=== PATIENT | male | born 1995 | race Caucasian/White ===

== ENCOUNTER 2025-01-30 18:30 | Emergency (ER) | payer BC, SELFPAY ==
--- OUTSIDE RECORDS SUMMARY | 2025-01-30 18:32 | XMS_ITS | Clinical Summary ---
Author Organization [place] Address [facility] [place] [address] Care Team Providers Care Coping Machine Assembler Name Role Phone Carlos Mcdaniel MD Primary Care Provider [phone] Allergies Active Allergy Reactions Criticality Noted Date Comments Amoxicillin 09/06/2003 SOB/wheezing/coughing Medications NO ACTIVE MEDICATIONS . 0 0 07/31/2003 Active Active Problems Problem Noted Date Diagnosed Date Extrinsic asthma 12/07/2003 Overview (06/20/2015): Problem list name updated by automated process. Provider to review Immunizations Immunization Administration Dates Next Due DTAP (<7y) 03/11/2001 HIB (PRP-T) 1995 HepB 04/27/2002,04/28/2001,03/11/2001 Historical DTP/aP 07/31/1996,05/05/1996,11/17/18 96,1995 MMR (MMRII) 04/28/2001,03/08/1997 Meningococcal ACWY (Menactra ) 07/19/2007 OPV, trivalent, live 07/31/1996,1995,08/25 Pneumococcal (PCV 7) 04/28/2001 Poliovirus, inactivated (IPV) 03/11/2001 TDAP Vaccine (Adacel) 07/19/2007 Varicella (Varivax) 07/19/2007,07/31/2003 Family History Medical History Relation Comments Diabetes Maternal Grandmother Type II Relation Status Comments Maternal Grandmother Social History Tobacco Use Types Packs/Day Years Used Date Smoking Tobacco: Never Alcohol Use Standard Drinks/Week Comments No 0 (1 standard drink = 0.6 oz pur e alcohol) Sex and Gender Information Value Date Recorded Sex Assigned at Not on file Legal 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 Gender Identity Not on file Sexual Orientation Not on file Last Filed Vital Signs Vital Sign Reading Time Taken Comments Blood Pressure 107/58 11/05/2018 12:12 PM FABRICATION AND ASSEMBLY SUPERVISOR Pulse 97 11/05/2018 12:12 PM FABRICATION AND ASSEMBLY SUPERVISOR Temperature 36.8 C (98.3 F) 11/05/2018 11:08 AM FABRICATION AND ASSEMBLY SUPERVISOR Respiratory Rate 20 11/05/2018 12:12 PM FABRICATION AND ASSEMBLY SUPERVISOR Oxygen Saturation 97% 11/05/2018 12:43 PM FABRICATION AND ASSEMBLY SUPERVISOR Inhaled Oxygen Concentration - - Weight 39 kg (86 lb) 07/19/2007 3:30 PM CDT Height 148.6 cm (4' 10.5) 07/19/2007 3:30 PM CD T Body Mass Index 17.67 07/19/2007 3:30 PM CDT Plan of Treatment Not on file Insurance [facility] [place] [id number] [place] [id number] [place] Care Teams Coping Machine Assembler Relationship Specialty Start Date End Date Carlos Mcdaniel MD [facility] [address] [place] [facility] [place] [address] PCP - General Family Practice 11/05/18
--- OUTSIDE RECORDS SUMMARY | 2025-01-30 18:32 | XMS_ITS | Clinical Summary ---
[facility] Address [address] [address] Care Team Providers Care Adult Care Provider Name Role Phone Unassigned, Provider Primary Care Provider Unava ilable Source Comments You are receiving this document as you are listed as the primary care provider,follow-up provider, or the patient has been referred to you for consultation.This is in compliance with the Medicare and[facility] EHR Incentive Program,which states Providers who transition their patient to another setting of careor provider of care or refers their patient to another provider of care shouldprovide summary care record for each transition of care or referral. [employer] Allergies Active Allergy Reactions Criticality Noted Date Comments Penicillins Anaphylaxis High 11/05/2018 Medications aspirin, enteric-coated 325 MG enteric coated tablet 10/24/2018 Activ e gabapentin (NEURONTIN) 300 MG capsule 10/24/2018 Active cyclobenzaprine (FLEXERIL) 5 MG tablet 10/24/2018 Active oxyCODONE HCl 10 MG Take 1 Tablet by mouth every 6 hours as needed. for pain 0 11/04/2018 Active Active Problems No known active problems Social History Tobacco Use Types Packs/Day Years Used Date Smoking Tobacco: Former Smokeless Tobacco: Never Sex and Gender Information Value Date Recorded Sex Assigned at Not on file Legal Sex Male 5:08 AM CDT Gender Identity Not on file Sexual Orientation Not on file Last Filed Vital Signs Vital Sign Reading Time Taken Comments Blood Pressure 118/67 11/05/2018 10:42 AM SHREDDED FILLER HOPPER FEEDER Pulse 114 11/05/2018 10:42 AM SHREDDED FILLER HOPPER FEEDER Temperature 36.8 C (98.3 F) 11/05/2018 9:39 AM SHREDDED FILLER HOPPER FEEDER Respiratory Rate 20 11/05/2018 10:42 AM SHREDDED FILLER HOPPER FEEDER Oxygen Saturation 98% 11/05/2018 9:39 AM SHREDDED FILLER HOPPER FEEDER Inhaled Oxygen Concentration - - Weight 68.1 kg (150 lb 1.6 oz) 11/21/2018 12:30 PM SHREDDED FILLER HOPPER FEEDER Height 186.7 cm (6' 1.5) 11/21/2018 12:30 PM CS T Body Mass Index 19.53 11/21/2018 12:30 PM SHREDDED FILLER HOPPER FEEDER Plan of Treatment Health Maintenance Due Date Last Done Comments Hep C Screening (Preventive Services) 1995 HIV Screening (Preventive Services) 2011 Adult Preventive Visit 2013 HepB Vaccine (1) 2014 DTaP/Tdap/Td Vaccine (6 - Tdap) 07/19/2017 07/19/2007, 03/11/2001, 07/31/1996, Additional history exists COVID-19 Vaccine ( season) 2024 Influenza Vaccine (Season Ended) 2025 10/23/2018, 11/13/2015 Zoster/Shingles Vaccine (1 of 2) 2045 IPV (Polio) Vaccine Completed 03/11/2001, 07/31/1996, 1995, Additional history exists MCV4 Vaccine Aged Out 07/19/2007 No longer eligi ble based on patient's age to complete this topic HPV Vaccine Aged Out No longer eligi ble based on patient's age to complete this topic HepA Vaccine Aged Out No longer eligi ble based on patient's age to complete this topic Hib Vaccine Aged Out No longer eligi ble based on patient's age to complete this topic Meningococcal B Vaccine Aged Out No l onger eligible based on patient's age to complete this topic Pneumococcal Vaccine Aged Out No long er eligible based on patient's age to complete this topic Insurance [facility] BLUE LINK Care Teams Adult Care Provider Relationship Specialty Start Date End Date Unassigned, Provider [address] [place] [id number] PCP - General 10/07/01
[2025-01-30 18:36] VITALS: BP 148/83; PULSE 96; RESP 18; TEMP 36.8; O2SAT 96; BMI 23.6
--- NOTE | 2025-01-30 18:52 | ED_ITS ---
HPI - General Adult General Date Seen: 01/30/25 Chief complaint: Shortness of Breath/Dyspnea Stated complaint: SOB Time Seen by Provider: 01/30/25 18:52 History of Present Illness HPI narrative: 29 yo M brought to the ER today by EMS for shortness. 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 He got a little bit better when he came in out of the heat but got worse again when he came back outside. He was brought in by EMS and has audible wheezing. He received 2 albuterol nebs and 1 DuoNeb while in route. He also received a dose of IV Solu-Medrol enroute. He has a history of asthma but has not had a significant exacerbation in 10 or 20 years. After the nebs and steroids given by EMS he says he is feeling much better. No difficulty breathing now. No ongoing coughing. He still feels just very slight tightness in his lungs when he tries to breathe deeply. He does note that he has a history of asthma but has not needed an inhaler since he was probably 8 years old. He does have a history of chronically stuffy nose for years but no recent new stuffiness and no recent illness such as cough or fever. He is a nonsmoker. He does work outside in the heat and the dust. He suspects that probably the hot weather and the air quality is probably what triggered his asthma to flare up. He notes that there is currently an air quality advisory. Related Data Previous Rx's ?Medication ?Instructions ?Recorded albuterol sulfate 90 mcg/actuation 2 inh inhalation Q4H PRN #1 ea 01/30/25 breath activated powder inhaler Allergies Allergy/AdvReac Type Severity Reaction Status Date / Time Penicillins Allergy Severe Anaphylaxis Verified 01/30/25 18:43 Exam Narrative: Exam Narrative: Constitutional: Appears well-developed and well-nourished. Alert. Conversant. Non toxic. Very polite. HENT: Head: Atraumatic. Nose: Nose normal. Mouth/Throat: Oral mucosa is clear and moist. no trismus. Pharynx normal. Tonsils symmetric. No tonsillar enlargement, erythema, or exudate. Eyes: Conjunctivae normal. EOM normal. Pupils equal, round, and reactive to light. No scleral icterus. Neck: Normal range of motion. Neck supple. No tracheal deviation present. Cardiovascular: Normal rate, regular rhythm. No gallop. No friction rub. No murmur heard. Symmetric radial artery pulses Pulmonary/Chest: Effort normal. No stridor. No respiratory distress. No wheezes unless he breathes out forcefully in which case he has very faint wheezes bilaterally. No rales. No rhonchi . No tenderness. Abdominal: Soft. Bowel sounds normal. No distension. No mass. No tenderness. No rebound. No guarding. Musculoskeletal: RUE: Normal range of motion. No tenderness. No deformity LUE: Normal range of motion. No tenderness. No deformity RLE: Normal range of motion. No edema. No tenderness. No deformity LLE: Normal range of motion. No edema. No tenderness. No deformity Neurological: Alert and oriented to person, place, and time. Normal strength. CN II-VII intact. No sensory deficit. GCS eye subscore is 4. GCS verbal subscore is 5. GCS motor subscore is 6. Normal coordination Skin: Skin is warm and dry. No rash noted. No pallor. Normal capillary refill. Psychiatric: Normal mood. Normal affect. Const: Vital Signs, click to edit/add: Vital Signs - 24 hr 01/30/25 18:36 01/30/25 20:05 Temperature 98.3 F 98.3 F Pulse Rate [Pulse Oximeter] 96 80 Respiratory Rate 18 16 Blood Pressure [Ri ght Upper Arm] 148/83 H 138/78 Pulse Oximetry 96 Oxygen Delivery Me thod Room Air Course Course ED Course: Did well here in the ER. No recurrent wheezing. Vital Signs Vital signs: Initial Vital Signs Temperature 98.3 F 01/30/25 18:36 Temperature Source Temporal Artery Scan 01/30/25 18:36 Pulse Rate 96 01/30/25 18:36 Pulse Rhythm Regular 01/30/25 18:36 Respiratory Rate 18 01/30/25 18:36 Blood Pressure 148/83 H 01/30/25 18:36 Blood Pressure Mean 104 01/30/25 18:36 Blood Pressure Position Supine 01/30/25 18:36 Pulse Oximetry 96 01/30/25 18:36 Oxygen Delivery Method Room Air 01/30/25 18:36 Vital Signs Temperature 98.3 F 01/30/25 18:36 Pulse Rate 96 01/30/25 18:36 Respiratory Rate 18 01/30/25 18:36 Blood Pressure 148/83 H 01/30/25 18:36 Pulse Oximetry 96 01/30/25 18:36 Oxygen Delivery Method Room Air 01/30/25 18:36 Temperature 98.3 F 01/30/25 20:05 Pulse Rate 80 01/30/25 20:05 Respiratory Rate 16 01/30/25 20:05 Blood Pressure 138/78 01/30/25 20:05 Pulse Oximetry 96 01/30/25 18:36 Oxygen Delivery Method Room Air 01/30/25 18:36 Medical Decision Making MDM Narrative Medical decision making narrative: This patient presents to the ER by EMS for evaluation of shortness of breath and wheezing. Signs and symptoms are consistent with asthma exacerbation. He was treated with multiple rounds of nebulizers and IV steroids by EMS and is now doing much better. Very minimal ongoing wheezing and bronchospasm. Oxygen sats are normal. Work of breathing normal. Mental status normal. A broad differential was considered including asthma, pneumonia, bronchitis, pneumothorax, viral induced wheezing, allergic phenomena, among others. There are no signs at this point of any serious etiologies including those mentioned above. The patient feels and sounds improved after interventions per EMS. No indication for hospitalization at this time including no hypoxia, no marked increase in respiratory rate, and there are minimal to no retractions. Supportive outpatient management is indicated, medications for discharge noted above. Close followup with primary care physician. Return if increased any worsening, especially wheezing, progressive shortness of breath, chest pain, or if develops fever greater than 102. Questions answered and patient comfortable with plan. Discharge Plan Discharge Clinical Impression: Asthma with acute exacerbation Patient Disposition: Home, Self-Care Condition: Stable Instructions: Asthma (ED) Additional Instructions: As we discussed, right now we suspect that her symptoms were caused by an asthma attack due to the hot chantal air outside. It is important to treat your asthma aggressively over the next couple of days. Use your inhaler (2 puffs every 2-4 hours if needed) if you notice shortness of breath, chest tightness, coughing, or other symptoms. Use the prednisone tablets 40 mg once per day for the next 5 days. We gave you a prescription for a small supply of albuterol that you can use overnight tonight. I will also send a prescription for an albuterol inhaler to your pharmacy. You can brass pickler tomorrow if you need additional albuterol. Remember, please come back to the ER right away if you have worsening trouble breathing, chest tightness, coughing, or any other concerns. Please recheck with your regular doctor within 1-2 weeks for repeat lung exam. If you are having ongoing symptoms of asthma or have other more mild flares, your regular doctor can put you back on long-term asthma medications. Prescriptions: New albuterol sulfate 90 mcg/actuation aerosol powdr breath activated 2 inh inhalation Q4H PRNQty: 1 0RF Follow Up/Referrals: Provider,Not a Local [Primary Care Provider] - Stand Alone Forms: Work/School Release, [employer] Info Instructions
--- OUTSIDE RECORDS SUMMARY | 2025-01-30 19:24 | XMS_ITS | Clinical Summary ---
Author Organization [place] Address Counts include 234 beds at the [facility] 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 Gender Identity Not on file Sexual Orientation Not on file Last Filed Vital Signs Vital Sign Reading Time Taken Comments Blood Pressure 107/58 11/05/2018 12:12 PM ELECTRONIC INSTRUMENT TRADES WORKER Pulse 97 11/05/2018 12:12 PM ELECTRONIC INSTRUMENT TRADES WORKER Temperature 36.8 C (98.3 F) 11/05/2018 11:08 AM ELECTRONIC INSTRUMENT TRADES WORKER Respiratory Rate 20 11/05/2018 12:12 PM ELECTRONIC INSTRUMENT TRADES WORKER Oxygen Saturation 97% 11/05/2018 12:43 PM ELECTRONIC INSTRUMENT TRADES WORKER Inhaled Oxygen Concentration - - Weight 39 kg (86 lb) 07/19/2007 3:30 PM CDT Height 148.6 cm (4' 10.5) 07/19/2007 3:30 PM CD T Body Mass Index 17.67 07/19/2007 3:30 PM CDT Plan of Treatment Not on file Insurance [facility] [place] [id number] [place] [id number] [place] Care Teams Cartoon Designer Relationship Specialty Start Date End Date Carlos Mcdaniel MD [facility] [address] [place] [facility] [place] [address] PCP - General Family Practice 11/05/18
--- OUTSIDE RECORDS SUMMARY | 2025-01-30 19:24 | XMS_ITS | Clinical Summary ---
Author [facility] Address [address] [address] Care Team Providers Care Director Of Admissions Name Role Phone Unassigned, Provider Primary Care Provider Unava ilable Source Comments You are receiving this document as you are listed as the primary care provider,follow-up provider, or the patient has been referred to you for consultation.This is in compliance with the Medicare and[facility] Centercaid EHR Incentive Program,which states Providers who transition their patient to another setting of careor provider of care or refers their patient to another provider of care shouldprovide summary care record for each transition of care or referral. [employer] Allergies Active Allergy Reactions Criticality Noted Date [...] Comments Blood Pressure 118/67 11/05/2018 10:42 AM COTTON CLEANER Pulse 114 11/05/2018 10:42 AM COTTON CLEANER Temperature 36.8 C (98.3 F) 11/05/2018 9:39 AM COTTON CLEANER Respiratory Rate 20 11/05/2018 10:42 AM COTTON CLEANER Oxygen Saturation 98% 11/05/2018 9:39 AM COTTON CLEANER Inhaled Oxygen Concentration - - Weight 68.1 kg (150 lb 1.6 oz) 11/21/2018 12:30 PM COTTON CLEANER Height 186.7 cm (6' 1.5) 11/21/2018 12:30 PM CS T Body Mass Index 19.53 11/21/2018 12:30 PM COTTON CLEANER Plan of Treatment Health Maintenance Due Date [...] patient's age to complete this topic Insurance [facility] [employer]INK Care Teams Director Of Admissions Relationship Specialty Start Date End Date Unassigned, Provider [address] [place] [id number] PCP - General 10/07/01
[2025-01-30 20:05] VITALS: BP 138/78; PULSE 80; RESP 16; TEMP 36.8
== END 2025-01-30 20:06 | disposition home or self-care (01) ==
PROVIDERS: Emergency Provider Emergency Medicine
DX: J45.901 Unspecified asthma with (acute) exacerbation (principal)
CPT/HCPCS: 99283; 99284